=== PATIENT | female | born 1955 | race Caucasian/White ===

== ENCOUNTER 2018-04-21 09:04 | Observation (INO) | payer OTHER ==
[~2018-04-21] VITALS: Ht 157.5 cm; Wt 87.0 kg
[2018-04-21 10:30] LABS: ALBUMIN 3.7 g/dL (3.4-5.0); ANION GAP 11 mmol/L (5-15); CALCIUM 9.1 mg/dL (8.5-10.1); CHLORIDE 94 mmol/L (98-107); CREATININE 1.27 mg/dL (0.55-1.02)
[2018-04-21 10:40] LABS: BASOPHILS # (AUTO) 0.03 x10^3/uL (0-0.1); BASOPHILS % (AUTO) 0 % (0-1); EOSINOPHILS # (AUTO) 0.11 x10^3/uL (0-0.4); EOSINOPHILS % (AUTO) 2 % (1-7); LYMPHOCYTES # (AUTO) 1.67 x10^3/uL (1-3.4); LYMPHOCYTES % (AUTO) 23 % (22-44); MD NO; MEAN CORPUSCULAR HEMOGLOBIN 29.1 pg (27.0-34.8); MEAN CORPUSCULAR HGB CONC 34.5 g/dL (32.4-35.8); MEAN CORPUSCULAR VOLUME 84.3 fL (80-100); MEAN PLATELET VOLUME 7.9 fL (7.4-10.4); MONOCYTES # (AUTO) 0.74 x10^3/uL (0.2-0.8); MONOCYTES % (AUTO) 10 % (2-9); NEUTROPHILS % (AUTO) 65 % (42-75); PLATELET COUNT 324 x10^3/uL (130-400); RED BLOOD COUNT 4.97 x10^6/uL (3.82-5.3); RED CELL DISTRIBUTION WIDTH 13.9 % (9.6-15.2)
[2018-04-21] MEDS ORDERED: SODIUM CHLORIDE FLUSH 10ML SYR IVF ONE (11:00)
[2018-04-21] MEDS ORDERED: POTASSIUM CHLORIDE 20 MEQ TAB.ER.PRT ONE (11:29)
[2018-04-21] MEDS ORDERED: STERILE WATER IV ONE (11:30)
[2018-04-21] MEDS ORDERED: MAGNESIUM SULFATE IV ONE (11:30)
[2018-04-21] MEDS ORDERED: POTASSIUM CHLORIDE 10% 40 MEQ/30 ML UDC PO ONE (11:30)
[2018-04-21] MEDS ORDERED: POTASSIUM CHLORIDE 40 MEQ in SODIUM CHLORIDE 0.9% 1,000 ML IV ONE (11:57)
[2018-04-21] MEDS ORDERED: POTASSIUM CHLORIDE 20 MEQ TAB.ER.PRT PO ONE ×2 (12:00→16:00)
[2018-04-21] MEDS ORDERED: NS + 40MEQ KCL 1,000 ML IV ONE (12:32)
[2018-04-21] MEDS: HEPARIN 5,000 UNITS/ML, 1ML SQ SCH ×2 (13:00→21:00)
[2018-04-21] MEDS ORDERED: AMLODIPINE 5 MG TABLET PO ONE (13:00)
[2018-04-21] MEDS ORDERED: hydrALAzine 20 MG/ML, 1ML IVPush PRN (13:00)
[2018-04-21] MEDS ORDERED: POTASSIUM CHLORIDE 40 MEQ in SODIUM CHLORIDE 0.9% 500 ML IV ONE ×3 (13:00→20:00)
[2018-04-21 13:10] LABS: TROPONIN I < 0.015 ng/mL (0.000-0.045)
[2018-04-21 13:17] LABS: HEMOGLOBIN A1C 6.2 % (4.2-6.3)
[2018-04-21 14:03] VITALS: BP 155/105
[2018-04-21] MEDS: SODIUM CHLORIDE 0.9% 1,000 ML IV SCH (14:22)
[2018-04-21] MEDS ORDERED: CYCL-259 PO (16:22)
[2018-04-21] MEDS ORDERED: TRIA1TAB3 PO (16:22)
[2018-04-21] MEDS ORDERED: LEVO100T5 PO (16:22)
[2018-04-21] MEDS ORDERED: AMLO5TAB2 PO (16:22)
[2018-04-21] MEDS ORDERED: ATOR40TA78 PO (16:22)
[2018-04-21] MEDS ORDERED: LOSA50TA6 PO (16:22)
[2018-04-21] MEDS ORDERED: OMEP20CA14 PO (16:22)
[2018-04-21] MEDS ORDERED: CYCLOBENZAPRINE 10 MG TABLET PO SCH (17:00)
[2018-04-21] MEDS: METOPROLOL TARTRATE 25 MG TABLET PO SCH (17:44)
[2018-04-21 18:19] LABS: TROPONIN I < 0.015 ng/mL (0.000-0.045)
[2018-04-21 20:00] VITALS: BP 115/80
[2018-04-21] MEDS ORDERED: ATORVASTATIN 40 MG TABLET PO SCH (21:00)
[2018-04-21 21:13] LABS: ANION GAP 8 mmol/L (5-15); CALCIUM 8.6 mg/dL (8.5-10.1); CHLORIDE 105 mmol/L (98-107); CREATININE 1.11 mg/dL (0.55-1.02)
[2018-04-21] MEDS: CYCLOBENZAPRINE 10 MG TABLET PO SCH (21:31)
[2018-04-22] MEDS ORDERED: POTASSIUM CHLORIDE 40 MEQ in SODIUM CHLORIDE 0.9% 500 ML IV ONE
[2018-04-22 00:43] VITALS: BP 112/72
[2018-04-22] MEDS: HEPARIN 5,000 UNITS/ML, 1ML SQ SCH ×2 (05:00→13:00)
[2018-04-22 06:10] LABS: BASOPHILS # (AUTO) 0.07 x10^3/uL (0-0.1); BASOPHILS % (AUTO) 1 % (0-1); EOSINOPHILS # (AUTO) 0.13 x10^3/uL (0-0.4); EOSINOPHILS % (AUTO) 2 % (1-7); LYMPHOCYTES # (AUTO) 1.76 x10^3/uL (1-3.4); LYMPHOCYTES % (AUTO) 30 % (22-44); MD NO; MEAN CORPUSCULAR VOLUME 85.1 fL (80-100); MEAN PLATELET VOLUME 8.2 fL (7.4-10.4); MONOCYTES # (AUTO) 0.75 x10^3/uL (0.2-0.8); MONOCYTES % (AUTO) 13 % (2-9); NEUTROPHILS # (AUTO) 3.17 x10^3/uL (1.8-6.8); NEUTROPHILS % (AUTO) 54 % (42-75); PLATELET COUNT 273 x10^3/uL (130-400); RED BLOOD COUNT 4.44 x10^6/uL (3.82-5.3); RED CELL DISTRIBUTION WIDTH 14.1 % (9.6-15.2)
[2018-04-22 06:15] LABS: CHLORIDE 108 mmol/L (98-107)
[2018-04-22 06:32] LABS: ALANINE AMINOTRANSFERASE 26 U/L (12-78); ALKALINE PHOSPHATASE 125 U/L (45-117); ANION GAP 9 mmol/L (5-15); BILIRUBIN,TOTAL 0.6 mg/dL (0.2-1.0); CALCIUM 8.2 mg/dL (8.5-10.1); CREATININE 0.97 mg/dL (0.55-1.02); TOTAL PROTEIN 6.4 g/dL (6.4-8.2)
[2018-04-22 06:46] VITALS: BP 113/73
[2018-04-22] MEDS ORDERED: POTASSIUM CHLORIDE 20 MEQ TAB.ER.PRT PO ONE (07:00)
[2018-04-22] MEDS: METOPROLOL TARTRATE 25 MG TABLET PO SCH (08:24)
[2018-04-22] MEDS: CYCLOBENZAPRINE 10 MG TABLET PO SCH ×2 (08:24→15:15)
[2018-04-22] MEDS: SODIUM CHLORIDE 0.9% 1,000 ML IV SCH (08:25)
[2018-04-22] MEDS ORDERED: LEVOTHYROXINE 100 MCG TABLET PO SCH (09:00)
[2018-04-22] MEDS ORDERED: OMEPRAZOLE 20 MG CAPSULE.DR PO SCH (09:00)
[2018-04-22] MEDS ORDERED: AMLODIPINE 5 MG TABLET PO SCH (09:00)
[2018-04-22 12:49] VITALS: BP 136/81
[2018-04-22] MEDS ORDERED: POTA20TA6 PO (13:54)
[2018-04-22] MEDS ORDERED: AMLO5TAB2 PO (13:54)
[2018-04-22] MEDS ORDERED: LISINOPRIL 10 MG TABLET PO ONE (14:00)
[2018-04-22 14:30] LABS: ANION GAP 8 mmol/L (5-15); CALCIUM 8.3 mg/dL (8.5-10.1); CHLORIDE 109 mmol/L (98-107); CREATININE 0.96 mg/dL (0.55-1.02)
== END 2018-04-22 17:00 | disposition home or self-care (01) ==
LOC: ED 12:13 → EDIP 12:32 → 4EST 13:40 → DCLOUNGE 04-22 16:48
PROVIDERS: ADMIT Internal Medicine; ATTEND Internal Medicine
DX: E87.6 Hypokalemia (principal); I10 Essential (primary) hypertension; E78.5 Hyperlipidemia, unspecified; E03.9 Hypothyroidism, unspecified; E78.00 Pure hypercholesterolemia, unspecified; N17.0 Acute kidney failure with tubular necrosis; R73.03 Prediabetes
CPT/HCPCS: 36415; 80048; 80053; 82040; 83036; 83735; 84439; 84443; 84484; 85025; 93005; 93306; 96361; 96365; 96366; 96367; 99285; G0378; J3475; J3480; J7030; J7040